=== PATIENT | female | born 1950 | race Caucasian/White ===

== ENCOUNTER 2019-03-25 14:06 | Inpatient (IN) | payer MEDICARE, OTHER ==
[~2019-03-25] VITALS: Ht 182.9 cm; Wt 150.7 kg
[2019-05-03] MEDS ORDERED: ACTOS 15MG TAB15 MG PO ×2 (09:51→09:55)
[2019-05-03] MEDS ORDERED: LOTREL 5/10MG C1 CAP PO (09:52)
[2019-05-03] MEDS ORDERED: OSCAL 500 TAB500 MG PO (09:52)
[2019-05-03] MEDS ORDERED: LASIX 80MG TABL80 MG PO (09:53)
[2019-05-03] MEDS ORDERED: ARICEPT10 MG PO (09:53)
[2019-05-03] MEDS ORDERED: MULTI VITAMINS1 TAB PO (09:53)
[2019-05-03] MEDS ORDERED: NORCO 325 MG-7.1 TAB PO (09:54)
[2019-05-03] MEDS ORDERED: PRIL40 PO (09:55)
[2019-05-03] MEDS ORDERED: SYNTHROID0.075 MG/T PO (10:00)
[2019-05-03] MEDS ORDERED: ULORIC80 MG PO (10:01)
[2019-05-03] MEDS ORDERED: VESICARE10 MG PO (10:01)
[2019-05-04] VITALS (10 sets, daily range): BP systolic 114–179; BP diastolic 63–92; PULSE 51–77; TEMP 95–98.6
--- NOTE | 2019-05-04 10:16 | NUR ---
pt prepped for surgery assessments complete, see computer. Unable to start IV by floor staff and IV services. Kim notified @[id number]. pt ready at that time.
--- NOTE | 2019-05-04 18:52 | NUR ---
REPORT TO MELLY SOLITARIO.
--- NOTE | 2019-05-04 19:11 | NUR ---
Pt resting with HOB elevated. Family at bedside. No distress noted. Respiration even and unlabored. Lungs clear. Spo2 96% on RA. Post op VSS. Abdomen soft, nontender. BS+. R knee dressing and kelly clean dry and intact. Pedal pulses 2+ bilaterally. Christine catheter to dependent drainage-clear, yellow urine. SCDs in place. Pt reports pain 8/10 to right knee. Will continue to monitor.
--- NOTE | 2019-05-04 19:55 | NUR ---
Pain unrelieved by first dose of Morphine IM. Second dose administered per orders. Will continue to monitor.
--- NOTE | 2019-05-04 20:40 | NUR ---
Pt reports Morphine brought pain from 8 down to a 5. PRN PO meds given to try to decrease pain further in preparation to dangle.
--- NOTE | 2019-05-04 21:30 | NUR ---
Pt helped to side of bed to dangle legs. Not well tolerated by patient. Patient reports increased pain and refuses to attempt to stand.
[2019-05-05] VITALS (7 sets, daily range): BP systolic 125–157; BP diastolic 50–69; PULSE 63–87; TEMP 97.7–98.8
--- NOTE | 2019-05-05 05:40 | NUR ---
Dr. Arredondo at bedside to visit with patient.
[2019-05-05] MEDS ORDERED: NORCO 325 MG-7.1 TAB PO (05:55)
[2019-05-05] MEDS ORDERED: ULTRAM 50MG TAB50 MG PO (05:55)
[2019-05-05] MEDS ORDERED: ASPIRIN 32325 MG/TA1 PO (05:55)
--- NOTE | 2019-05-05 06:19 | NUR ---
Pt resting this AM. Dressing to R Knee changed to aquacell by Dr. Arredondo. Pts pain was increased at the beginning of the shift and took several doses of PRN pain medications to decrease into an acceptable range for the patient. Pt was only able to dangle briefly. Pt educated about the importance of increasing her activity. Ice to R knee. Christine catheter to depedent drainage. IV converted to INT last night. No needs noted.
[2019-05-05 06:30] LABS: HEMATOCRIT 29.7 % (37.0-47.0); HEMOGLOBIN 9.5 g/dl (12.5-16.0)
--- NOTE | 2019-05-05 06:59 | NUR ---
Report from Calista SOLITARIO. Dr. Arredondo in to see pateint this am, dressing changed.
--- NOTE | 2019-05-05 08:59 | NUR ---
PHYSICAL THERAPY IN WORKING WITH PATIENT AT THSI TIME. PT EATING AND DRINKING. PAIN ISSUES OVER NIGHT. PO PAIN MEDS GIVEN THIS AM IN ANTICIPATION OF THERAPY. PT UNABLE/UNWILLING TO AMBULATE LAST NOC. NAVARRO CATHETER TO DD THIS AM. PLAN ON DISCONTINUEING CATHETER AFTER THERAPY.
--- NOTE | 2019-05-05 09:55 | NUR ---
LORENA met with kryst and daughter, November, to discuss discharge planning. Patient lives independently at home alone in [place]. Patient's daughter lives close by in [place] and is supportive. Patient's PCP is Dr Mikel Tubbs in [place] and she obtains prescriptions from [facility] on in [place]. Patient reports she has outpaitent therapy scheduled in [place] but does not know how well she will do with therapy. SW reports that home health is an option if patient does not feel comfortable doing outpatient PT. LORENA will continue to follow and ensure a safe discharge plan.
--- NOTE | 2019-05-05 12:15 | NUR ---
First visit from the wire tinner. No needs right now.
[2019-05-06 03:50] VITALS: BP 128/58; PULSE 64; TEMP 97.8
[2019-05-06 07:19] LABS: HEMATOCRIT 27.5 % (37.0-47.0); HEMOGLOBIN 8.8 g/dl (12.5-16.0)
[2019-05-06 09:06] VITALS: BP 119/46; PULSE 71; TEMP 98.5
--- NOTE | 2019-05-06 09:43 | NUR ---
Pt blood pressure reading was low. Pt blood pressure medications were held per primary nurse ALTAF Wren. Pt. has no complaints at this time. Pt. ambulated to nurse's station for physical therapy.
[2019-05-06 10:18] VITALS: BP 138/50; PULSE 71
--- NOTE | 2019-05-06 11:15 | NUR ---
SW spoke with PT. Patient is making progress with therapy and PT reports patient is okay to discharge home with family support and outpatient PT. SW followed up with patient and daughter. Patient reports she is comfortable returnng home after working with therapy as an inpatient. Patient daughter is supportive and will provide transportation to outpatient therapy.
[2019-05-06 12:21] VITALS: BP 126/47; PULSE 81; TEMP 98.4
--- NOTE | 2019-05-06 13:31 | NUR ---
Pt is currently at nurse's desk doing physical therapy. Pt ambulated from her room to bed. Pt daughter is in her room at this time. Pt will ambulate with physical therapy back to her room after therapy. Reported off to nurse Siena RN.
--- NOTE | 2019-05-06 15:05 | NUR ---
Discharge paperwork reviewed with patient and daughter. Patient and daughter verbalized an understanding to follow doctors orders. IV removed right external jugular. Pressure held and gauze and paper tape applied. Tip intact and patient tolerated well. Patients daughter assisted with gathering personal belongings. No further needs expressed from patient and daughter. Patient transfered by wheelchair outside with personal belongings and discharge paperwork.
== END 2019-05-06 15:07 | disposition home or self-care (01) | DRG 470 ==
LOC: JCC 05-04 07:30
PROVIDERS: Physician Assistant; ADMIT Orthopaedic Surgery
PROC: 0SRC0J9 Replacement of Right Knee Joint with Synthetic Substitute, Cemented, Open Approach (ICD-10-PCS; principal; 2019-05-04 11:00)
DX: M17.11 Unilateral primary osteoarthritis, right knee (principal); Z68.42 Body mass index [BMI] 45.0-49.9, adult; I48.91 Unspecified atrial fibrillation; E11.9 Type 2 diabetes mellitus without complications; M10.9 Gout, unspecified; I10 Essential (primary) hypertension; G47.33 Obstructive sleep apnea (adult) (pediatric); E03.9 Hypothyroidism, unspecified; E78.00 Pure hypercholesterolemia, unspecified; E66.01 Morbid (severe) obesity due to excess calories; Z96.1 Presence of intraocular lens; Z98.49 Cataract extraction status, unspecified eye; Z99.89 Dependence on other enabling machines and devices
CPT/HCPCS: A4314; A9284; C1776; J0690; J2250; J2270; J2704; J2795; J3010; J7120